=== PATIENT | female | born 1960 | race Caucasian/White ===

== ENCOUNTER → 2016-12-23 | Outpatient (CLI) | payer MEDICARE, OTHER ==
--- NOTE | 2016-12-23 16:37 | MR ---
EXAMINATION TYPE: MR lumbar spine wo con DATE OF EXAM: 12/23/2016 COMPARISON: 10/17/2014 CT lumbar spine HISTORY: Back pain with right lower extremity radiculopathy and prior lumbar fusion of L4-L5. TECHNIQUE: Multiplanar, multisequence images of the lumbar spine were acquired. Fixation rods and pedicular screws are seen of L4-L5. Lumbar vertebral body heights are maintained. S mall T1 hyperintense and T2 hyperintense probable hemangiomas are present within S1. Modic changes ar e appreciated of the vertebral body endplates, degenerative in nature. L1-L2: Small annular tear is seen of a broad-based disc bulge. No neural foraminal narrowing or spina l canal stenosis. L2-L3: Broad-based disc bulge is present without spinal canal stenosis or neural foraminal narrowing. L3-L4: Small broad-based disc bulge results in mild bilateral neural foraminal narrowing. Minimal fac et arthropathy and ligamentum flavum buckling are also noted at this level. No spinal canal stenosis. L4-L5: Broad-based disc bulge is seen without neural foraminal narrowing or spinal canal stenosis. In tervertebral disc desiccation is seen as well as an annular tear is right foraminal. Susceptibility a rtifact creates partial obscuration of the neural foramen, however there does not appear to be neural foraminal stenosis created by residual disc. However on series 201 image 13 a posterior osteophyte d oes appear to abut the L4 nerve root on the right. Ligament flavum has been resected on the right wit h right hemilaminectomy defect. L5-S1: Small right eccentric broad-based disc bulge is seen without neural foraminal stenosis or spin al canal stenosis. Conus medullaris terminates at L1. Postoperative changes are seen within the interspinous ligament an d subcutaneous tissues at L3-S1 and L1-S1 respectively. IMPRESSION: 1. Although there does not appear to be residual disc herniation or neuroforaminal stenosis at L4 L5 1 posterior osteophyte of the inferior endplate of L4 abuts the L4 nerve root and may create impressi on upon the L4 nerve root on the right. 2. Multilevel degenerative disc disease resulting in variable degrees of neural foraminal narrowing w ithout spinal canal stenosis. 3. Small annular tear at L1-L2 without disc herniation, spinal canal stenosis or neural foraminal sloane rowing.
== END | disposition home or self-care (01) ==
LOC: RADMRIMAIN 14:43
PROVIDERS: ATTEND Internal Medicine
DX: M51.36 Other intervertebral disc degeneration, lumbar region (principal); M99.73 Connective tissue and disc stenosis of intervertebral foramina of lumbar region
CPT/HCPCS: 72148

== ENCOUNTER → 2017-02-05 | Outpatient (CLI) | payer MEDICARE, OTHER ==
--- NOTE | 2017-02-05 12:00 | CT ---
EXAMINATION TYPE: CT lumbar spine wo con DATE OF EXAM: 02/05/2017 COMPARISON: NONE HISTORY: Patient complains of worsening chronic lower right back pain and right hip pain. Patient keyes s difficulty raising right leg and walkiing. CT DLP: 1337.3 mGycm CONTRAST: None TECHNIQUE: CT of the lumbar spine is performed on a spiral scan at 3 mm thick sections. Reconstructed images are performed in the coronal and sagittal planes. FINDINGS: T12-L1: No focal disc herniation or significant disc bulge is evident. No spinal canal stenosis or neural foraminal stenosis is present. L1-L2: Broad-based disc bulge has mild anterior thecal sac compression. No AP spinal canal stenosis i s present. Foramen are patent. L2-L3: Mild broad-based disc bulging is anterior thecal sac contact. No AP spinal canal stenosis or n eural foraminal stenosis present. Mild facet hypertrophy and vacuum phenomenon is present on the righ t. L3-L4: No focal disc herniation or significant disc bulge is evident. No spinal canal stenosis or n eural foraminal stenosis is present. Pedicle screws are present L4. This causes beam hardening artifa ct in some limitation. L4-L5: No focal disc herniation or significant disc bulge is evident. No spinal canal stenosis or n eural foraminal stenosis is present. There is loss of disc height through this level. Pedicle screws are present at L4 and L5. This causes beam hardening artifact in some limitation. L5-S1: No focal disc herniation or significant disc bulge is evident. No spinal canal stenosis or n eural foraminal stenosis is present Vertebral body alignment appears normal. Some straightening between L4 and L5 may be present. Note is made of vacuum joint space phenomenon at the sacroiliac joints bilaterally. IMPRESSION: 1. Postsurgical changes L4-L5. 2. Mild disc bulging L1-2, L2-3. No stenosis is evident.
--- NOTE | 2017-02-05 12:56 | XR ---
EXAMINATION TYPE: XR Hip Bilateral Complete DATE OF EXAM: 02/05/2017 CLINICAL HISTORY: Bilateral hip pain for a few months with no known injury. TECHNIQUE: AP and frogleg views of the bilateral hips are obtained. COMPARISON: None. FINDINGS: There is no acute fracture/dislocation evident in either hip. With regards to the right hi p there is mild femoral acetabular arthropathy with minimal cephalad joint space narrowing and acetab ular roof sclerosis. No suspicious osseous lesion. In regards to the left hip there is similar mild a rthropathy with acetabular roof sclerosis although joint space narrowing is less pronounced. The over lying soft tissue appears unremarkable. Probable phleboliths are noted within the pelvis. IMPRESSION: 1. There is no acute fracture or dislocation in either hip. 2. Mild bilateral femoral acetabular arthropathy.
== END | disposition home or self-care (01) ==
LOC: RADCTMAIN 09:03
DX: M51.26 Other intervertebral disc displacement, lumbar region (principal); M12.852 Other specific arthropathies, not elsewhere classified, left hip; M12.851 Other specific arthropathies, not elsewhere classified, right hip; Z98.890 Other specified postprocedural states
CPT/HCPCS: 72131; 73521

== ENCOUNTER → 2017-11-13 | Outpatient (CLI) | payer MEDICARE, OTHER ==
--- NOTE | 2017-11-13 22:54 | MR ---
EXAMINATION TYPE: MR lumbar spine wo/w con DATE OF EXAM: 11/13/2017 COMPARISON: CT 02/05/2017 HISTORY: 57-year-old female Low back pain Technique: Multiplanar, multisequence images of the lumbar spine were obtained before and after admin istration of 11.5 mL intravenous Gadavist gadolinium contrast. FINDINGS: Vertebral body heights are preserved. Postsurgical changes of L4-L5 posterior and interbody lumbar fusion. There is trace grade 1 anterolisthesis above the fusion at L3-L4. Multilevel degenerative disc disease characterized by variable mild disc desiccation and disc bulging . Facet arthropathy above the fusion. Conus medullaris is normal. No suspicious bone marrow replacement. Some fatty Modic type II endplate changes present at the level of fusion, L4-L5. At T12-L1, mild bulging disc minimally impress on the ventral thecal sac. No significant canal or for aminal stenosis. At L1-L2, minimal bulging disc without significant canal or foraminal stenosis. At L2-L3, minimal bulging disc with ligamentum flavum thickening and facet degenerative change. Bacon es result in mild right neuroforaminal stenosis without significant spinal canal stenosis. At L3-L4, level above the fusion, there is facet arthropathy with ligamentum flavum thickening and bu lging disc and trace grade 1 anterolisthesis. Changes cause mild narrowing of the spinal canal with m inimal inferior neural foraminal narrowing on both sides. At the fused L4-L5 level, there is minimal inferior right-sided neural foraminal narrowing. No spinal canal stenosis. L5-S1, facet arthropathy without significant canal or foraminal stenosis. A suspicious epidural or perineural enhancing granulation tissue seen. IMPRESSION: 1. Status post L4-L5 posterior and interbody fusion. 2. Degenerative changes above the fusion at L3-L4 characterized by facet arthropathy, ligamentum flav um thickening, trace grade 1 anterolisthesis, and bulging disc. This contributes to mild narrowing of the spinal canal with minimal inferior neuroforaminal narrowing on both sides. 3. Mild right neuroforaminal stenosis at L2-L3 and minimal inferior right-sided neural foraminal sten osis at L4-L5.
== END | disposition home or self-care (01) ==
LOC: RADMRIMAIN 12:56
PROVIDERS: ATTEND Internal Medicine
DX: M48.061 Spinal stenosis, lumbar region without neurogenic claudication (principal); M99.73 Connective tissue and disc stenosis of intervertebral foramina of lumbar region; M47.816 Spondylosis without myelopathy or radiculopathy, lumbar region; M43.16 Spondylolisthesis, lumbar region; M46.96 Unspecified inflammatory spondylopathy, lumbar region; M24.28 Disorder of ligament, vertebrae; Z98.1 Arthrodesis status
CPT/HCPCS: 72158; A9581

== ENCOUNTER 2018-02-25 12:18 | Emergency (ER) | payer MEDICARE, OTHER ==
[2018-02-25 12:31] VITALS: BP 130/85; PULSE 74; RESP 20; TEMP 98.1
--- NOTE | 2018-02-25 13:09 | ED ---
General Adult HPI - General Chief complaint: Back Pain/Injury Stated complaint: LOWER RT SIDE BACK PAIN Source: patient, RN notes reviewed Mode of arrival: wheelchair Limitations: no limitations - History of Present Illness Initial comments: Patient is a 57-year-old female who presents the emergency department with complaints of right sided low back pain that is chronic. She reports taking Novi and gabapentin for her pain. She denies seeing a neurologist or an orthopedic doctor however she sees a pain medicine doctor and a chiropractor. Denies bowel or bladder incontinence. Denies saddle anesthesia. Denies any recent fever, chills, shortness of breath, chest pain, abdominal pain, nausea or vomiting, dysuria or hematuria, constipation or diarrhea, headaches or visual changes, or any other complaints. - Related Data Home Medications Medication Instructions Recorded Confirmed Celecoxib [CeleBREX] 200 mg PO DAILY 05/09/15 01/15/16 Acetaminophen Tab [Tylenol Tab] 1,000 mg PO Q8H PRN 01/15/16 01/15/16 Albuterol Sulfate [Proair Hfa] 1 - 2 puff INHALATION RT-Q6H PRN 01/15/16 Gabapentin [Neurontin] 300 mg PO DAILY 01/15/16 01/15/16 Mometasone/Formoterol [Dulera 200 2 puff INHALATION RT-BID 01/15/16 01/15/16 Mcg/5 Mcg Inhaler] Mupirocin 2% Oint [Bactroban 2% 1 applic TOPICAL DAILY PRN 01/15/16 01/15/16 Oint] Previous Rx's Medication Instructions Recorded HYDROcodone/APAP 7.5-325MG [Novi 1 tab PO Q6HR PRN #20 tab 01/15/16 7.5-325] Allergies Allergy/AdvReac Type Severity Reaction Status Date / Time morphine Allergy Rash/Hives Verified 02/25/18 12:31 Penicillins Allergy Rash/Hives Verified 02/25/18 12:31 Sulfa (Sulfonamide Allergy Rash/Hives Verified 02/25/18 12:31 Antibiotics) codeine AdvReac Nausea & Verified 02/25/18 12:31 Vomiting Review of Systems ROS Statement: Those systems with pertinent positive or pertinent negative responses have been documented in the HPI. ROS Other: All systems not noted in ROS Statement are negative. Past Medical History Past Medical History: Asthma, Fibromyalgia Additional Past Medical History / Comment(s): PM>2YRS, bronchitis, chronic back pain History of Any Multi-Drug Resistant Organisms: None Reported Past Surgical History: Back Surgery, Orthopedic Surgery Additional Past Surgical History / Comment(s): L3-4 fusion - 2010, elpidio knee arthroscopy Past Anesthesia/Blood Transfusion Reactions: Motion Sickness Past Psychological History: Anxiety Smoking Status: Never smoker Past Alcohol Use History: None Reported Past Drug Use History: None Reported - Past Family History Father Family Medical History: Cancer Additional Family Medical History / Comment(s): skin Brother(s) Family Medical History: Cancer Additional Family Medical History / Comment(s): lung General Exam Limitations: no limitations General appearance: alert, in no apparent distress, other (Obese.) Head exam: Present: atraumatic, normocephalic Eye exam: Present: normal appearance Respiratory exam: Present: normal lung sounds bilaterally Cardiovascular Exam: Present: regular rate, normal rhythm Extremities exam: Present: normal capillary refill, other (DP pulses palpable and strong bilaterally. Unable to palpate PT pulses due to patient's body habitus.) Back exam: Present: normal inspection, tenderness (Right low back.) Neurological exam: Present: alert, oriented X3, normal gait Psychiatric exam: Present: normal affect, normal mood Skin exam: Present: warm, dry, normal color Course Vital Signs 02/25/18 12:29 Temperature 98.1 F Pulse Rate 74 Respiratory 20 Rate Blood Pressure 130/85 O2 Sat by Pulse 99 Oximetry Medical Decision Making - Medical Decision Making MRI of the lumbar spine on 11/13/2017 reviewed: Status post L4-L5 posterior and interbody fusion. Degenerative changes above the fusion at L3-L4 with mild narrowing of the spinal canal with minimal inferior neuroforaminal narrowing on both sides. Mild right neuroforaminal stenosis at L2-L3 and minimal inferior right-sided neural foraminal stenosis at L4-L5. Patient's pain is chronic. Toradol given here. Case discussed in detail with attending physician Dr. Yang. Disposition Clinical Impression: Chronic low back pain Disposition: HOME SELF-CARE Condition: Good Instructions: Chronic Back Pain (ED) Additional Instructions: Follow-up with your PCP in 2 days. Follow-up with orthopedics in 2 days. Return to the emergency department if your symptoms worsen or any other concerns. Is patient prescribed a controlled substance at d/c from ED?: No Referrals: Lobo Mi MD [Primary Care Provider] - 1-2 days Alvin Harris MD [STAFF PHYSICIAN] - 1-2 days
[2018-02-25] MEDS ORDERED: KETOROLAC 60 MG/2 ML VIAL IM STA (14:05)
== END 2018-02-25 14:19 | disposition home or self-care (01) ==
LOC: EC 12:18
DX: G89.29 Other chronic pain (principal); M54.5 Low back pain; J45.909 Unspecified asthma, uncomplicated; Z79.899 Other long term (current) drug therapy; Z88.0 Allergy status to penicillin; Z88.2 Allergy status to sulfonamides; Z88.5 Allergy status to narcotic agent; Z98.1 Arthrodesis status
CPT/HCPCS: 99283; 96372; J1885

== ENCOUNTER 2018-03-08 21:42 | Emergency (ER) | payer MEDICARE, OTHER ==
[2018-03-08 21:59] VITALS: RESP 18
[2018-03-08] MEDS ORDERED: IPRATROPIUM-ALBUTEROL 3 ML NEB INHALATION STA (22:38)
--- NOTE | 2018-03-08 22:40 | ED ---
SOB HPI - General Chief Complaint: Shortness of Breath Stated Complaint: mental health Time Seen by Provider: 03/08/18 22:22 Source: EMS Mode of arrival: ambulatory Limitations: physical limitation - History of Present Illness Initial Comments: is a 57-year-old female presenting for difficulty in breathing. The patient states that she has had this ongoing problem with her upstairs neighbor smoking and thus causing her to have throat irritation and shortness of breath. She tried her inhaler including Symbicort which did not provide any relief. She admits to shortness breath as well as coughing but denies any chest pain. She denies any abdominal pain or vomiting/diarrhea but has had some nausea. - Related Data Home Medications Medication Instructions Recorded Confirmed Albuterol Sulfate [Proair Hfa] 1 - 2 puff INHALATION RT-Q6H PRN 01/15/16 Albuterol Nebulized [Ventolin 2.5 mg INHALATION RT-QID PRN 03/08/18 03/08/18 Nebulized] Budesonide/Formoterol Fumarate 12 puff INHALATION RT-BID PRN 03/08/18 03/08/18 [Symbicort 80-4.5 Mcg Inhaler] Furosemide [Lasix] 10 mg PO DAILY PRN 03/08/18 03/08/18 Gabapentin 600 mg PO TID 03/08/18 03/08/18 Hydrocodone/Acetaminophen [Mcroberts 1 tab PO Q6H PRN 03/08/18 03/08/18 10-325] Previous Rx's Medication Instructions Recorded Ondansetron Odt [Zofran Odt] 4 mg PO Q8HR PRN #15 tab 03/09/18 Allergies Allergy/AdvReac Type Severity Reaction Status Date / Time morphine Allergy Rash/Hives Verified 03/08/18 22:45 Penicillins Allergy Rash/Hives Verified 03/08/18 22:45 Sulfa (Sulfonamide Allergy Rash/Hives Verified 03/08/18 22:45 Antibiotics) codeine AdvReac Nausea & Verified 03/08/18 22:45 Vomiting Review of Systems ROS Statement: Those systems with pertinent positive or pertinent negative responses have been documented in the HPI. Constitutional: Negative for chills, fatigue and fever. HENT: Negative for congestion. Positive for throat discomfort Respiratory: Negative for chest tightness, and wheezing. Positive for shortness of breath and for cough Cardiovascular: Negative for chest pain and palpitations. Gastrointestinal: Negative for abdominal pain. Negative for abdominal distention , diarrhea, and vomiting. Positive for nausea Genitourinary: Negative for dysuria. Musculoskeletal: Negative for back pain, neck pain and neck stiffness. Skin: Negative for color change. Neurological: Negative for dizziness, speech difficulty, weakness and light- headedness. Psychiatric/Behavioral: Negative for agitation and confusion. Negative for anxiety ROS Other: All systems not noted in ROS Statement are negative. Past Medical History Past Medical History: Asthma, Fibromyalgia Additional Past Medical History / Comment(s): PM>2YRS, bronchitis, chronic back pain History of Any Multi-Drug Resistant Organisms: None Reported Past Surgical History: Back Surgery, Orthopedic Surgery Additional Past Surgical History / Comment(s): L3-4 fusion - 2010, elpidio knee arthroscopy Past Anesthesia/Blood Transfusion Reactions: Motion Sickness Past Psychological History: Anxiety Smoking Status: Never smoker Past Alcohol Use History: None Reported Past Drug Use History: None Reported - Past Family History Father Family Medical History: Cancer Additional Family Medical History / Comment(s): skin Brother(s) Family Medical History: Cancer Additional Family Medical History / Comment(s): lung General Exam - General Exam Comments Initial Comments: Constitutional: Pt is oriented to person, place, and time. Pt appears well- developed and well-nourished. No distress. HENT: Head: Normocephalic and atraumatic. Eyes: EOM are normal. Neck: Normal range of motion. Neck supple. Cardiovascular: Tachycardia present, regular rhythm, S1 normal, S2 normal and normal heart sounds. Exam reveals no gallop and no friction rub. No murmur heard. Pulmonary/Chest: Effort normal and breath sounds normal. No tachypnea and no bradypnea. No respiratory distress. No wheezes or rales noted. Abdominal: Soft. Bowel sounds are normal. Pt exhibits no shifting dullness, no distension, no pulsatile liver, no fluid wave, no abdominal bruit and no ascites. There is no tenderness. There is no rigidity, no rebound, no guarding, no tenderness at McBurney's point and negative Casiano's sign. Musculoskeletal: Normal range of motion. Neurological: Pt is alert and oriented to person, place, and time. No cranial nerve deficit. Skin: Skin is warm and dry. No rash noted. Pt is not diaphoretic. No erythema. No pallor. Psychiatric: Pt has a normal mood and affect. Pt behavior is normal. Thought content normal. Limitations: physical limitation Course Vital Signs 03/08/18 03/08/18 03/08/18 21:48 23:04 23:14 Temperature 97.1 F L Pulse Rate 108 H 105 H 105 H Respiratory 18 Rate Blood Pressure 163/79 O2 Sat by Pulse 95 Oximetry 03/09/18 00:50 Temperature 98.7 F Pulse Rate 86 Respiratory 18 Rate Blood Pressure 123/59 O2 Sat by Pulse 98 Oximetry Medical Decision Making - Medical Decision Making Cardiac evaluation was completed and troponin was noted to be negative and EKG had no significant abnormalities. The patient was given breathing treatment and stated that her symptoms are improved. Patient was advised to continue her inhalers and follow up with PCP in next 1-2 days. Because patient's story is not consistent with ACS, it was thought that the patient could be safely discharged and follow-up. Patient was agreeable to plan and noted to be resting in bed complaining no acute distress at time of disposition. - Lab Data Result diagrams: 03/08/18 23:00 03/08/18 23:00 Lab Results 03/08/18 03/08/18 03/08/18 Range/Units 23:00 23:00 23:00 WBC 8.9 (3.8-10.6) k/uL RBC 4.95 (3.80-5.40) m/uL Hgb 14.1 (11.4-16.0) gm/dL Hct 43.2 (34.0-46.0) % MCV 87.2 (80.0-100.0) fL MCH 28.4 (25.0-35.0) pg MCHC 32.5 (31.0-37.0) g/dL RDW 13.2 (11.5-15.5) % Plt Count 212 (150-450) k/uL Neutrophils % 76 % Lymphocytes % 17 % Monocytes % 5 % Eosinophils % 1 % Basophils % 1 % Neutrophils # 6.7 (1.3-7.7) k/uL Lymphocytes # 1.5 (1.0-4.8) k/uL Monocytes # 0.4 (0-1.0) k/uL Eosinophils # 0.1 (0-0.7) k/uL Basophils # 0.1 (0-0.2) k/uL PT 9.5 (9.0-12.0) sec INR 0.9 (<1.2) APTT 22.7 (22.0-30.0) sec Sodium 142 (137-145) mmol/L Potassium 3.8 (3.5-5.1) mmol/L Chloride 104 (98-107) mmol/L Carbon Dioxide 29 (22-30) mmol/L Anion Gap 9 mmol/L BUN 24 H (7-17) mg/dL Creatinine 0.80 (0.52-1.04) mg/dL Est GFR (CKD-EPI)AfAm >90 (>60 ml/min/1.73 sqM) Est GFR (CKD-EPI)NonAf 81 (>60 ml/min/1.73 sqM) Glucose 101 H (74-99) mg/dL Calcium 9.2 (8.4-10.2) mg/dL Magnesium 1.8 (1.6-2.3) mg/dL Total Bilirubin 0.2 (0.2-1.3) mg/dL AST 26 (14-36) U/L ALT 47 (9-52) U/L Alkaline Phosphatase 95 (38-126) U/L Troponin I (0.000-0.034) ng/mL Total Protein 6.6 (6.3-8.2) g/dL Albumin 4.0 (3.5-5.0) g/dL 03/08/18 Range/Units 23:00 WBC (3.8-10.6) k/uL RBC (3.80-5.40) m/uL Hgb (11.4-16.0) gm/dL Hct (34.0-46.0) % MCV (80.0-100.0) fL MCH (25.0-35.0) pg MCHC (31.0-37.0) g/dL RDW (11.5-15.5) % Plt Count (150-450) k/uL Neutrophils % % Lymphocytes % % Monocytes % % Eosinophils % % Basophils % % Neutrophils # (1.3-7.7) k/uL Lymphocytes # (1.0-4.8) k/uL Monocytes # (0-1.0) k/uL Eosinophils # (0-0.7) k/uL Basophils # (0-0.2) k/uL PT (9.0-12.0) sec INR (<1.2) APTT (22.0-30.0) sec Sodium (137-145) mmol/L Potassium (3.5-5.1) mmol/L Chloride (98-107) mmol/L Carbon Dioxide (22-30) mmol/L Anion Gap mmol/L BUN (7-17) mg/dL Creatinine (0.52-1.04) mg/dL Est GFR (CKD-EPI)AfAm (>60 ml/min/1.73 sqM) Est GFR (CKD-EPI)NonAf (>60 ml/min/1.73 sqM) Glucose (74-99) mg/dL Calcium (8.4-10.2) mg/dL Magnesium (1.6-2.3) mg/dL Total Bilirubin (0.2-1.3) mg/dL AST (14-36) U/L ALT (9-52) U/L Alkaline Phosphatase (38-126) U/L Troponin I <0.012 (0.000-0.034) ng/mL Total Protein (6.3-8.2) g/dL Albumin (3.5-5.0) g/dL - EKG Data EKG Comments: EKG shows normal sinus rhythm with a rate of 84 bpm, [place] interval 146, QRS 94, QTC 449. There is no significant ST depressions or elevations. Disposition Clinical Impression: Shortness of breath, Cough, Throat discomfort Disposition: HOME SELF-CARE Condition: Good Instructions: Chronic Bronchitis (ED) Prescriptions: Ondansetron Odt [Zofran Odt] 4 mg PO Q8HR PRN #15 tab PRN Reason: Nausea And Vomiting Is patient prescribed a controlled substance at d/c from ED?: No Referrals: Lobo Mi MD [Primary Care Provider] - 1-2 days Time of Disposition: 00:37
[2018-03-08 23:18] LABS: Basophils # (A) 0.1 k/uL (0-0.2); Basophils % (A) 1 %; Eosinophils # (A) 0.1 k/uL (0-0.7); Eosinophils % (A) 1 %; HCT 43.2 % (34.0-46.0); HGB 14.1 gm/dL (11.4-16.0); Lymphocytes # (A) 1.5 k/uL (1.0-4.8); Lymphocytes % (A) 17 %; MCH 28.4 pg (25.0-35.0); MCHC 32.5 g/dL (31.0-37.0); MCV 87.2 fL (80.0-100.0); Mean Platelet Volume 7.5; Monocytes # (A) 0.4 k/uL (0-1.0); Monocytes % (A) 5 %; Neutrophils # (A) 6.7 k/uL (1.3-7.7); Neutrophils % (A) 76 %; Platelet Count 212 k/uL (150-450); RBC 4.95 m/uL (3.80-5.40); RDW 13.2 % (11.5-15.5); WBC 8.9 k/uL (3.8-10.6)
[2018-03-08 23:26] LABS: ALT 47 U/L (9-52); AST 26 U/L (14-36); Alkaline Phosphatase 95 U/L (38-126); Anion Gap 9 mmol/L; Blood Urea Nitrogen 24 mg/dL (7-17); Calcium 9.2 mg/dL (8.4-10.2); Carbon Dioxide 29 mmol/L (22-30); Chloride 104 mmol/L (98-107); Glucose 101 mg/dL (74-99); Magnesium 1.8 mg/dL (1.6-2.3); Potassium 3.8 mmol/L (3.5-5.1); Sodium 142 mmol/L (137-145); Total Bilirubin 0.2 mg/dL (0.2-1.3); Total Protein 6.6 g/dL (6.3-8.2)
[2018-03-08 23:27] LABS: INR 0.9 (<1.2); Partial Thromboplastin Time 22.7 sec (22.0-30.0); Prothrombin Time 9.5 sec (9.0-12.0)
--- NOTE | 2018-03-09 00:08 | XR ---
EXAMINATION TYPE: XR chest 2V DATE OF EXAM: 03/08/2018 COMPARISON: 05/09/2015 HISTORY: Difficulty breathing TECHNIQUE: Frontal and lateral views of the chest are obtained. FINDINGS: There is no heart failure nor confluent pneumonic infiltrate. Costophrenic angles are gordo r. Heart size is normal. Bony thorax is intact. IMPRESSION: No active cardiopulmonary disease. Normal heart. No adverse change.
[2018-03-09] MEDS ORDERED: ONDANSETRON 4 MG/2 ML VIAL IVP STA (00:37)
[2018-03-09 01:01] VITALS: BP 123/59; PULSE 86; TEMP 98.7
== END 2018-03-09 00:51 | disposition home or self-care (01) ==
LOC: EC 21:42
DX: R06.02 Shortness of breath (principal); R05 Cough; R07.0 Pain in throat; J45.909 Unspecified asthma, uncomplicated; M79.7 Fibromyalgia; Z79.899 Other long term (current) drug therapy; Z88.0 Allergy status to penicillin; Z88.2 Allergy status to sulfonamides; Z88.5 Allergy status to narcotic agent; Z98.1 Arthrodesis status; Z77.22 Contact with and (suspected) exposure to environmental tobacco smoke (acute) (chronic)
CPT/HCPCS: 36415; 94640; 93005; 80053; 83735; 84484; 85025; 85610; 85730; 71046; 99285; 96374; J2405

== ENCOUNTER → 2020-05-24 | Outpatient (CLI) | payer MEDICARE, OTHER ==
[2020-05-24 20:05] LABS: Cyclic Citrull Pep IgG Unit <0.5 U/mL; Cyclic Citrullinated Pep IgG NEGATIVE (NEGATIVE)
[2020-05-24 20:12] LABS: Protein, Total 6.2 g/dL (6.2-8.2)
[2020-05-24 20:20] LABS: ALT 29 U/L (8-44); AST 22 U/L (13-35); Albumin/Globulin Ratio 2.32 (1.60-3.17); Alkaline Phosphatase 103 U/L (41-126); Calcium 9.3 mg/dL (8.7-10.3); Carbon Dioxide 23.6 mmol/L (21.6-31.8); Chloride 105 mmol/L (96-109); Creatine Kinase 35 U/L (26-186); Globulin 1.9 g/dL (1.6-3.3); Glucose 91 mg/dL (70-110); Non-African American GFR(CKD) 98.4 (60.0-200.0); Potassium 4.3 mmol/L (3.5-5.5); Sodium 140 mmol/L (135-145); Total Bilirubin 0.4 mg/dL (0.2-1.2); Total Protein 6.3 g/dL (6.2-8.2); Uric Acid 4.7 mg/dL (2.9-7.7)
[2020-05-24 23:49] LABS: Basophils # (A) 0.06 X 10*3/uL (0.00-0.10); Eosinophils # (A) 0.13 X 10*3/uL (0.04-0.35); Eosinophils % (A) 2.1 %; HCT 43.6 % (37.2-46.3); HGB 13.7 g/dL (12.0-15.0); Lymphocytes # (A) 1.61 X 10*3/uL (0.90-5.00); Lymphocytes % (A) 25.7 %; MCHC 31.4 g/dL (32.0-37.0); MCV 92.2 fL (80.0-97.0); Mean Platelet Volume 11.6 fL (9.5-12.2); Monocytes # (A) 0.41 X 10*3/uL (0.20-1.00); Monocytes % (A) 6.5 %; Neutrophils # (A) 4.03 X 10*3/uL (1.80-7.70); Neutrophils % (A) 64.4 %; Platelet Count 251 X 10*3/uL (140-440); RBC 4.73 X 10*6/uL (4.10-5.20); RDW 13.8 % (11.5-14.5); WBC 6.26 X 10*3/uL (4.50-10.00)
[2020-05-25 01:46] LABS: Erythrocyte Sedimentation Rate 12 mm/Hr (0-30)
[2020-05-25 13:14] LABS: Albumin 3.93 g/dL (3.80-4.90); Gamma Globulin 0.55 g/dL (0.70-1.50)
== END | disposition home or self-care (01) ==
LOC: LABWHC1 08:29
PROVIDERS: ATTEND Family Medicine
DX: E88.81 Metabolic syndrome and other insulin resistance (principal); E56.9 Vitamin deficiency, unspecified; M13.0 Polyarthritis, unspecified; M51.06 Intervertebral disc disorders with myelopathy, lumbar region
CPT/HCPCS: 36415; 80053; 82306; 82525; 82550; 82607; 83036; 84165; 84207; 84439; 84443; 84550; 85025; 85652; 86038; 86200; 86334; 86618

== ENCOUNTER → 2020-08-28 | Outpatient (CLI) | payer MEDICARE, OTHER ==
--- NOTE | 2020-08-28 13:56 | MR ---
EXAMINATION TYPE: MR lumbar spine wo/w con DATE OF EXAM: 08/28/2020 COMPARISON: Prior MRI lumbar spine November 13, 2017 HISTORY: Lumbago TECHNIQUE: Multiplanar, multisequence images of the lumbar spine is performed without and with IV contrast, util izing 9 mL intravenous Gadavist FINDINGS: Sagittal images of the lumbar spine show vertebral body heights and alignment to remain sta ble. Stable slight grade 1 anterolisthesis L3 on L4. Artifact from posterior interpedicular rods and screws L4-L5 level redemonstrated. Artificial disc material at this level is redemonstrated. Multile radha disc desiccation redemonstrated. The conus medullaris remains normal in position and signal endin g mid L1 level. The bone marrow signal intensity is overall heterogeneous. No abnormal postcontrast enhancement. Heterogeneous reticular endplate changes L4-L5 level. Axial images at T12-L1 level show mild broad disc bulge and mild facet degenerative changes and ligam enta flava hypertrophy with minimal effacement of the anterior and posterior lateral thecal sac. No s ignificant change from prior Axial images at L1-L2 level mild broad disc bulge and mild facet arthropathy bilaterally. Mild efface ment of the anterior and posterior lateral thecal sac. Patent bilateral neural foramina. No significa nt change from prior. Axial images at L2-L3 level shows moderate facet degenerative changes and ligament hypertrophy produc ing posterior lateral thecal sac. There is [id number] broad disc bulge mildly effacing the ante rior thecal sac. There is mild right-sided anterior inferior neural foraminal narrowing. Interval fac et degenerative progression from prior. Axial images at L3-L4 level show [id number] facet arthropathy and ligament flavum hypertrophy e ffacing the posterior lateral thecal sac. There is spondylolisthesis. Patent bilateral neural foramin a. No significant change from prior. Axial images at the L4-L5 level show artifact from surgical change. There is right-sided laminectomy defect and scar tissue. Spinal canal is preserved. Patent bilateral neural foramina. Axial images at L5-S1 level show mild to moderate facet arthropathy bilaterally. Spinal canal is pres erved. Pain bilateral neural foramina. No suspicious retroperitoneal findings. IMPRESSION: Postsurgical change L4-L5 level with stable alignment. Multilevel degenerative changes wi th increasing facet arthropathy L2-L3 level. Otherwise no significant interval degenerative progressi on from 2018 MRI.
--- NOTE | 2020-08-28 14:49 | MR ---
EXAMINATION TYPE: MR cervical spine wo con DATE OF EXAM: 08/28/2020 COMPARISON: None HISTORY: Cervicalgia TECHNIQUE: Multiplanar, multisequence images of the cervical spine were acquired. C2-C3: No evidence for degenerative disc disease. No disc bulge/herniation or protrusion. No Canal stenosis. Foramina are patent bilaterally. C3-C4: There is right-sided greater than left-sided facet arthropathy with mild right neural foramina l narrowing. C4-C5: No evidence for degenerative disc disease. No disc bulge/herniation or protrusion. No Canal stenosis. Foramina are patent bilaterally. C5-C6: There is a disc osteophyte complex with bilateral uncovertebral and facet arthropathy resultin g in moderate bilateral neural foraminal narrowing and mild central canal stenosis. C6-C7: There is a disc osteophyte complex with bilateral uncovertebral arthropathy resulting in moder ate bilateral neural foraminal narrowing and mild central canal stenosis. C7-T1: No evidence for degenerative disc disease. No disc bulge/herniation or protrusion. No Canal stenosis. Foramina are patent bilaterally. Cervical segments are intact. There is normal alignment. Cervical spinal cord is of normal signal. Craniovertebral junction relationships are within normal limits. Multilevel disc desiccation is see n. There is a T2 bright lesion of the left thyroid gland. IMPRESSION: 1. Multilevel disc disease and osteoarthritic changes of the cervical spine are worst at C5-6 and C6- 7 where there is moderate bilateral neural foraminal narrowing and mild central canal stenosis. 2. T2 bright lesion of the left thyroid gland is incidentally noted and dedicated thyroid imaging can be obtained for further evaluation.
== END | disposition home or self-care (01) ==
LOC: RADMRIMAIN 11:10
PROVIDERS: ATTEND Psychiatry & Neurology Neurology
DX: M50.323 Other cervical disc degeneration at C6-C7 level (principal); M99.71 Connective tissue and disc stenosis of intervertebral foramina of cervical region; M47.812 Spondylosis without myelopathy or radiculopathy, cervical region
CPT/HCPCS: 72141; 72158; A9585

== ENCOUNTER → 2021-11-22 | Outpatient (CLI) | payer MEDICARE, OTHER ==
--- NOTE | 2021-11-22 16:12 | XR ---
EXAMINATION TYPE: XR chest 2V DATE OF EXAM: 11/22/2021 COMPARISON: None HISTORY: 61-year-old female Z01.812, encounter for preprocedural laboratory exam prior to back surger y. TECHNIQUE: Frontal and lateral views FINDINGS: The heart is borderline in size. Aorta and pulmonary vasculature within normal limits. Mild hyperinfl ation. No consolidation or pleural effusion. IMPRESSION: 1. Borderline heart size. 2. Mild hyperinflation may relate to depth of inspiration or underlying emphysema. Clinically correla te. 3. No acute cardiopulmonary process.
== END | disposition home or self-care (01) ==
LOC: RADXRMAIN 15:19
PROVIDERS: ATTEND Family Medicine
DX: Z01.812 Encounter for preprocedural laboratory examination (principal)
CPT/HCPCS: 71046

== ENCOUNTER → 2022-05-21 | Outpatient (CLI) | payer MEDICARE, OTHER ==
--- NOTE | 2022-06-26 09:56 | P.CEMON ---
Event monitor shows sinus mechanism with paroxysms of atrial fibrillation with RVR up to 140 beats a minute Most paroxysms are brief in duration, but frequent However some a fairly long episodes of A. fib with RVR
--- NOTE | 2022-06-27 09:40 | EM ---
Sinus mechanism, heart rates ranging from 5833 beats a minute average 83 beats a minute Occasional PACs and PVCs, under 1% burden No sustained arrhythmias No bradycardia arrhythmias MTDD
== END | disposition home or self-care (01) ==
LOC: RADECHMAIN 11:57
PROVIDERS: ATTEND Family Medicine
DX: I48.91 Unspecified atrial fibrillation (principal)
CPT/HCPCS: 93270